=== PATIENT | female | born 1940 | race Caucasian/White ===

== ENCOUNTER 2016-08-20 05:05 | Inpatient (IN) ==
[2016-08-20] MEDS ORDERED: ASPIRIN PO STA (05:12)
--- NOTE | 2016-08-20 05:26 | EKG Report ---
Test Performed on : 08/20/2016 05:16:31 AM Test Reason : Chest Pain Blood Pressure : / mmHG Vent. Rate : 104 BPM Atrial Rate : 104 BPM P-R Int : 150 ms QRS Dur : 084 ms QT Int : 326 ms P-R-T Axes : 063 027 028 degrees QTc Int : 428 ms Sinus tachycardia. Possible Left atrial enlargement Cannot rule out Anterior infarct , age undetermined Abnormal ECG When compared with ECG of 11-AUG-2010 17:36, Nonspecific T wave abnormality now evident in Inferior leads Unconfirmed Result
[2016-08-20] MEDS ORDERED: DUONEB (A & A) INH ONE ×2 (05:29→08:25)
[2016-08-20 05:34] LABS: MANUAL DIFF NEEDED? NO
[2016-08-20 05:37] LABS: BASO% 0.3 % (0.0-0.8); EOS# 1.37 X1000 (0.0-0.7); EOS% 10.2 % (0.0-10.0); HEMATOCRIT 35.4 % (37.0-47.0); HEMOGLOBIN 11.8 g/dL (12.0-16.0); IMM GRAN# 0.04 X1000 (0.0-0.04); IMM GRAN% 0.3 % (0.0-0.5); LYMPH# 1.16 X1000 (1.2-3.4); LYMPH% 8.6 % (20.5-51.1); MCH 32.6 PG (27-31); MCHC 33.3 g/dL (33-37); MCV 97.8 FL (81-99); MONO# 0.91 X1000 (0.11-0.59); MONO% 6.8 % (1.7-9.3); MPV 9.1 FL (7.4-10.4); NEUT% 73.8 % (42.2-75.2); PLT 285 X1000 (130-400); RBC 3.62 XMIL (4.2-5.4)
[2016-08-20 05:48] LABS: INR 1.06; PROTIME 11.2 Seconds (9.2-11.7); PTT 29.6 Seconds (22.0-36.0)
[2016-08-20 05:55] LABS: ALBUMIN 3.2 g/dL (3.5-5.0); MAGNESIUM 1.5 mg/dL (1.5-2.7); POTASSIUM 4.3 mmol/L (3.5-5.1); TOTAL BILIRUBIN 0.46 mg/dL (0.20-1.00); TOTAL PROTEIN 7.6 g/dL (6.3-8.3)
[2016-08-20] MEDS ORDERED: LASIX IV ONE (06:18)
[2016-08-20] MEDS ORDERED: SOLU-MEDROL IV ONE (06:20)
[2016-08-20 06:33] LABS: URINE CULTURE NEEDED? NO; URINE MICRO REVIEW NEEDED? NO; URINE SOURCE CLEAN CATCH
[2016-08-20 06:46] LABS: BILIRUBIN URINE NEGATIVE (NEGATIVE); BLOOD URINE NEGATIVE (NEGATIVE); COLOR YELLOW; GLUCOSE URINE 70 mg/dL (NEGATIVE); LEUKOCYTES URINE NEGATIVE (NEGATIVE); NITRITE URINE NEGATIVE (NEGATIVE); PROTEIN URINE 30 mg/dL (NEGATIVE); SP GRAVITY URINE 1.015; TURBIDITY URINE CLEAR (CLEAR); UROBILINOGEN URINE NORMAL (NORMAL)
[2016-08-20 06:47] LABS: UR EPITHELIAL CELLS <10 /HPF (<10); URINE BACTERIA NEGATIVE /HPF; URINE RBC <10 /HPF (<10); URINE WBC <10 /HPF (<10)
--- NOTE | 2016-08-20 07:40 | Diag Imaging Result Doc PS360 ---
EXAM: CHEST-1 VIEW HISTORY: CP COMMENT: The inspiration is much less optimal than on 07/08/2010. There is ill-defined opacity in the lung bases particularly on the left. Some of this may be due to atelectasis. The possibility of mild bronchopneumonia in the left lower lobe and lingula cannot be excluded. The heart size is somewhat larger in appearance but this is probably a function of the degree of inspiration. There are calcified nodes in both long. IMPRESSION: Poor inspiration. Questionable atelectasis versus pneumonia particularly left lower lobe. Electronically signed by Steve Ott 08/20/2016 7:38 AM
[2016-08-20] MEDS ORDERED: TYLENOL WITH CODEINE #3 PO ONE (08:25)
--- NOTE | 2016-08-20 08:34 | PROVIDER DOCUMENTATION ---
HPI-Respiratory General - General Chief Complaint: Shortness of Breath Stated Complaint: SOB, BACK PAIN Time Seen by Provider: 08/20/16 06:04 Source: patient, family Allergies/Adverse Reactions: Patient Allergies Allergy/AdvReac Type Severity Reaction Status Date / Time No Known Allergies Allergy Verified 08/20/16 06:44 Home Medications: Home Medication List Medication Instructions Recorded Confirmed Last Taken Type ATORVAstatin [Lipitor] 10 mg PO DAILY 09/12/15 08/20/16 08/19/16 09:00 History Clonazepam 0.5 mg PO HS 09/12/15 08/20/16 08/19/16 21:00 History Duloxetine HCl [Cymbalta] 60 mg PO DAILY 09/12/15 08/20/16 08/19/16 09:00 History Hydrocodone Bit/Acetaminophen 1 each PO Q8H PRN PRN 09/12/15 08/20/16 09/12/15 History [Hydrocodon-Acetaminophn 10-325] Levothyroxine [Synthroid] 88 microgm PO DAILY 09/12/15 08/20/16 08/19/16 09:00 History Zolpidem Tartrate 10 mg PO HS 09/12/15 08/20/16 08/19/16 21:00 History Acarbose 100 mg PO DAILY 08/20/16 08/20/16 08/19/16 09:00 History Glyburide 2.5 mg PO DAILY 08/20/16 08/20/16 Unknown History Losartan Potassium [Cozaar] 100 mg PO DAILY 08/20/16 08/20/16 08/19/16 09:00 History PRAVAstatin [Pravachol] 40 mg PO DAILY 08/20/16 08/20/16 08/19/16 09:00 History Sitagliptin Phosphate [Januvia] 100 mg PO DAILY 08/20/16 08/20/16 08/19/16 09: 00 History Sulfamethoxazole/Trimethoprim 1 each PO BID 08/20/16 08/20/16 08/19/16 09:00 History [Bactrim Ds Tablet] - History of Present Illness-Resp Nature of Presenting Problem: Reports SOB with nonproductive cough and leg swelling since 2 days ago. Denies CP/SOB/LOC /F/C/N/V. Quality of Pain: reports: none Severity in ED: reports: moderate Onset/Duration: reports: 2 days ago Timing: reports: still present Context: denies: recent foreign travel Exposure: reports: unknown cause Cough Quality/Degree: reports: moderate, dry cough Episode Frequency: no prior episodes Current Respiratory Medication Therapy: Initiated see nurses note Modifying Factors: improves with: nothing Associated Symptoms: reports: cough, short of breath. denies: dizziness, earache, facial pain, fever/chills, headache, nasal congestion Similar Symptoms Previously?: Yes Recently seen or treated by another doctor?: No Review of Systems - Adult - REVIEW OF SYSTEMS - ADULT Constitutional: reports: no symptoms reported Eyes: reports: no symptoms reported Ears, Nose, Mouth & Throat: reports: no symptoms reported Cardiovascular: reports: see HPI, edema. denies: chest pain Respiratory: reports: see HPI, cough, shortness of breath Gastrointestinal: reports: no symptoms reported Genitourinary: reports: no symptoms reported Musculoskeletal: reports: no symptoms reported Integumentary: reports: no symptoms reported Neurological: reports: no symptoms reported Psychiatric: reports: no symptoms reported Endocrine: reports: no symptoms reported Hematologic/Lymphatic: reports: no symptoms reported Allergic/Immunologic: reports: no symptoms reported All Other Systems: Reviewed and Negative Past History - Adult - PAST MEDICAL HISTORY-ADULT Review of Records: reports: Old Records Reviewed, Nursing Assessment Review, Medications Reviewed, Social history reviewed & non-contributory. Physical Exam-General - PHYSICAL EXAM-ADULT Initial Vital Signs Reviewed: Yes - CONSTITUTIONAL General Appearance: appears well, alert, no apparent distress - EYES Eyes: PERRL/EOMI, pink conjunctivae - HEAD, EARS, NOSE, MOUTH & THROAT HENMT: normocephalic/atraumatic, moist mucous membranes, normal ENT inspection - NECK Neck: non-tender, full range of motion, supple - RESPIRATORY Respiratory: chest non-tender, lungs clear, normal breath sounds, no pleuratic chest pain, no respiratory distress, no accessory muscle use, decreased breath sounds, wheezing (B/l) - CARDIOVASCULAR Cardiovascular: normal peripheral pulses, regular rate, rhythm, no edema - GASTROINTESTINAL (ABDOMEN) Abdominal Exam: normal bowel sounds, non tender, soft - MUSCULOSKELETAL Back Exam: normal inspection, no CVA tenderness Extremity: normal range of motion, non-tender, normal gait - SKIN Integumentary: normal color, normal turgor, warm/dry - PSYCHIATRIC Psych/Mental Status: normal mood/affect, normal thought content, normal thought process, oriented x 3 Progress - PLAN OF CARE/RESULTS Progress/Plan/Lab Results: Vital Signs - 8 hr 08/20/16 05:24 08/20/16 05:38 08/20/16 07:02 Temperature 98.1 F Pulse Rate 105 H 105 H 92 H Respiratory Rate 19 19 25 H Blood Pressure 162/73 131/77 O2 Sat by Pulse Oximetry 87 L 93 L 93 L 08/20/16 07:48 Temperature Pulse Rate 97 H Respiratory Rate 20 Blood Pressure 121/71 O2 Sat by Pulse Oximetry 95 Laboratory Results - last 24 hr 08/20/16 08/20/16 08/20/16 05:25 05:25 05:25 WBC 13.44 H RBC 3.62 L Hgb 11.8 L Hct 35.4 L MCV 97.8 MCH 32.6 H MCHC 33.3 RDW Std Deviation 12.0 Plt Count 285 MPV 9.1 Immature Gran % (Auto) 0.3 Neut % (Auto) 73.8 Lymph % (Auto) 8.6 L [place] % (Auto) 6.8 Eos % (Auto) 10.2 H Baso % (Auto) 0.3 Immature Gran # (Auto) 0.04 Neut # (Auto) 9.92 H Lymph # (Auto) 1.16 L [place] # (Auto) 0.91 H Eos # (Auto) 1.37 H Baso # (Auto) 0.04 PT INR PTT (Actin FS) D-Dimer 4.17 H Sodium 137 Potassium 4.3 Chloride 97 L Carbon Dioxide 26 Anion Gap 14 BUN 24 H Creatinine 1.8 H Estimated GFR/1.73 m2 27 BUN/Creatinine Ratio 13 Glucose 234 H Calculated Osmolality 285 Calcium 9.0 Magnesium 1.5 Total Bilirubin 0.46 AST 11 ALT 7 L Alkaline Phosphatase 109 H Creatine Kinase 52 Troponin T Hgr-Z-[address] Pept Total Protein 7.6 Albumin 3.2 L Globulin 4.4 Albumin/Globulin Ratio 0.7 Urine Source Urine Color Urine Turbidity Urine pH Ur Specific [place] Urine Protein Ur Glucose (Stick) Ur Ketones (Stick) Urine Blood Urine Nitrite Urine Bilirubin Urobilinogen Dipstick Urine Leukocytes Urine WBC (Auto) Urine RBC (Auto) U Epithel Cells (Auto) Urine Bacteria (Auto) 08/20/16 08/20/16 08/20/16 05:25 05:25 05:25 WBC RBC Hgb Hct MCV MCH MCHC RDW Std Deviation Plt Count MPV Immature Gran % (Auto) Neut % (Auto) Lymph % (Auto) [place] % (Auto) Eos % (Auto) Baso % (Auto) Immature Gran # (Auto) Neut # (Auto) Lymph # (Auto) [place] # (Auto) Eos # (Auto) Baso # (Auto) PT 11.2 INR 1.06 PTT (Actin FS) 29.6 D-Dimer Sodium Potassium Chloride Carbon Dioxide Anion Gap BUN Creatinine Estimated GFR/1.73 m2 BUN/Creatinine Ratio Glucose Calculated Osmolality Calcium Magnesium Total Bilirubin AST ALT Alkaline Phosphatase Creatine Kinase Troponin T < 0.010 [id number]-Gwyztmtdemh Pept 3513 H Total Protein Albumin Globulin Albumin/Globulin Ratio Urine Source Urine Color Urine Turbidity Urine pH Ur Specific [place] Urine Protein Ur Glucose (Stick) Ur Ketones (Stick) Urine Blood Urine Nitrite Urine Bilirubin Urobilinogen Dipstick Urine Leukocytes Urine WBC (Auto) Urine RBC (Auto) U Epithel Cells (Auto) Urine Bacteria (Auto) 08/20/16 06:15 WBC RBC Hgb Hct MCV MCH MCHC RDW Std Deviation Plt Count MPV Immature Gran % (Auto) Neut % (Auto) Lymph % (Auto) [place] % (Auto) Eos % (Auto) Baso % (Auto) Immature Gran # (Auto) Neut # (Auto) Lymph # (Auto) [place] # (Auto) Eos # (Auto) Baso # (Auto) PT INR PTT (Actin FS) D-Dimer Sodium Potassium Chloride Carbon Dioxide Anion Gap BUN Creatinine Estimated GFR/1.73 m2 BUN/Creatinine Ratio Glucose Calculated Osmolality Calcium Magnesium Total Bilirubin AST ALT Alkaline Phosphatase Creatine Kinase Troponin T Trm-B-Xoobiasdckl Pept Total Protein Albumin Globulin Albumin/Globulin Ratio Urine Source CLEAN CATCH Urine Color YELLOW Urine Turbidity CLEAR Urine pH 6.0 Ur Specific [place] 1.015 Urine Protein 30 A Ur Glucose (Stick) 70 A Ur Ketones (Stick) NEGATIVE Urine Blood NEGATIVE Urine Nitrite NEGATIVE Urine Bilirubin NEGATIVE Urobilinogen Dipstick NORMAL Urine Leukocytes NEGATIVE Urine WBC (Auto) <10 Urine RBC (Auto) <10 U Epithel Cells (Auto) <10 Urine Bacteria (Auto) NEGATIVE Orders Category Date Time Status Cardiac Monitoring DIRECTED Care 08/20/16 05:12 Active Saline Loc NOW Care 08/20/16 05:12 Active CHEST-1 VIEW [RAD] Stat Exams 08/20/16 05:12 Completed LUNG SCAN / VQ [NM] Stat Exams 08/20/16 07:21 Ordered CBC WITH ELECTRONIC DIFF [HEME] Stat Lab 08/20/16 05:25 Completed CK PROFILE [SP CHEM] Stat Lab 08/20/16 05:25 Completed COMPREHENSIVE METABOLIC PANEL [CHEM] Stat Lab 08/20/16 05:25 Completed D-DIMER [CHEM] Stat Lab 08/20/16 05:25 Completed MAGNESIUM [CHEM] Stat Lab 08/20/16 05:25 Completed PRO B-NATRIURETIC PEPTIDE Stat Lab 08/20/16 05:25 Completed PROTIME WITH INR [COAG] Stat Lab 08/20/16 05:25 Completed PTT [COAG] Stat Lab 08/20/16 05:25 Completed TROPONIN T Stat Lab 08/20/16 05:25 Completed UA NIMS W/REFLEX CULT [URINALYSIS] Stat Lab 08/20/16 06:15 Completed Acetaminophen with Codeine [Tylenol with Codeine #3] Med 08/20/16 08:25 Discontinued 1 each PO NOW ONE Albuterol 2.5MG/Ipratrop 0.5MG [Duoneb (A & A)] Med 08/20/16 05:29 Discontinued 3 ml INH NOW ONE Albuterol 2.5MG/Ipratrop 0.5MG [Duoneb (A & A)] Med 08/20/16 08:25 Discontinued 3 ml INH NOW ONE Aspirin Med 08/20/16 05:12 Discontinued 325 mg PO STAT STA Furosemide [Lasix] Med 08/20/16 06:18 Discontinued 40 mg IV NOW ONE Methylprednisolone Sod Succ [Solu-Medrol] Med 08/20/16 06:20 Discontinued 80 mg IV NOW ONE Aerosol Treatments Routine Oth 08/20/16 05:29 Completed Aerosol Treatments Routine Oth 08/20/16 08:25 Active Aerosol Treatments Stat Oth 08/20/16 05:29 Completed Aerosol Treatments Stat Oth 08/20/16 08:25 Active EKG [EKG] Stat Ther 08/20/16 05:12 Draft US [Venous U/S Bilateral Legs] Stat Ther 08/20/16 07:21 Ordered Result Diagrams: 08/20/16 05:25 08/20/16 05:25 - XRAY 1 XRAY Study: Chest Impression: Abnormal XRAY Interpretation: LLL infiltrates per Radiology - CONSULTS/PCP/HOSPITALIST Notification Time Discussed: 08:33 Reason/Comments: Admit to hospitalist Consult Disposition: Admit Departure - Departure Time of Disposition Decision: 08:33 DIAGNOSIS: CHF exacerbation, Pneumonia, Shortness of breath Disposition: ADMITTED INPATIENT 09 Certified Medical Emergency: Emergent Condition: Stable Referrals and Follow-Ups: None,PCP [Primary Care Provider] - - Critical Care Note This patient required my direct & personal management of CC.: No
[2016-08-20] MEDS ORDERED: LEVAQUIN 500 MG/D5W 500 MG/100 ML IVPB IV ONE (08:35)
--- NOTE | 2016-08-20 11:13 | HISTORY AND PHYSICAL ---
PRIMARY CARE PHYSICIAN: Dr. Laura Dunbar. CHIEF COMPLAINT: Cough and shortness of breath. HISTORY OF PRESENT ILLNESS: Mrs. Vu is a 75-year-old female with a history of diastolic heart failure, CKD stage 3-[address] Johnson, hypertension, type 2 diabetes, and others, who presents with 2 weeks of progressively worsening cough and shortness of breath. Her cough is described as dry with occasional clear sputum production. She does report subjective fevers and chills. She also reports occasional episodes of atypical type chest pain and occasional lower extremity edema. Her continued cough brought her to the ER for evaluation. In the ER a chest x-ray was done and it showed poor inspiration but questionable infiltrate in the left lower lung zone. Laboratory data showed elevated white count, fairly significantly elevated D-dimer at 4.17, and a proBNP of 3,513. She does have a creatinine of 1.8 but on review this appears to be chronic. She denies any orthopnea or PND. She denies any exertional chest pain but does have exertional dyspnea. The patient had an echocardiogram done in June of this year which showed normal ejection fraction, mild MR, otherwise nothing acute. A stress test on that same day was negative. She has been given antibiotics and diuretics in the ER and she is now going to be admitted for further treatment evaluation. PAST MEDICAL HISTORY: 1. Diastolic heart failure. 2. Hypertension. 3. Type 2 diabetes. 4. Hyperlipidemia. 5. Hypothyroidism. 6. History of TIAs. 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 8. History of diverticulitis. PAST SURGICAL HISTORY: Hysterectomy, colon resection, cholecystectomy. SOCIAL HISTORY: Patient quit smoking 17 years ago. She lives in [place]. She is and has 2 children. She denies current tobacco, alcohol, or drug use. FAMILY HISTORY: Father from prostate cancer. Mother from CHF. REVIEW OF SYSTEMS: A 14 point review of systems was obtained and found to be negative with the exception of the HPI. ALLERGIES: No known drug allergies. HOME MEDICATIONS: Acarbose 100 mg daily, Lipitor 10 mg daily, Klonopin 0.5 mg at bedtime, Cymbalta 60 mg daily, glyburide 2.5 mg daily, [place] as directed, Synthroid 88 mcg daily, Cozaar 100 mg daily, Pravachol 40 mg daily, Januvia 100 mg daily, Bactrim 1 b.i.d., Zolpidem 10 mg at bedtime. PHYSICAL EXAMINATION: VITAL SIGNS: Blood pressure is 131/81, heart rate is 108, respiratory rate is 27, O2 saturation is 95% on 2 L, temperature is 98.1 degrees. GENERAL: This is an elderly-appearing female, lying in hospital bed. No acute distress. NEUROLOGIC: The patient is awake, alert, oriented. She follows commands without focal deficits. HEENT: Head is atraumatic and normocephalic. Pupils are equal, round, reactive to light. Oral mucosa is moist. Trachea is midline. No JVD or carotid bruits. CHEST: Diminished at the bases with bibasilar crackles. CV: Tachy but regular. S1, S2 is noted. GI: Soft, nondistended, nontender. Bowel sounds are positive. EXTREMITIES: Trace edema. Pulses palpable but diminished bilaterally. DIAGNOSTIC DATA: Chest x-ray shows questionable left lower lobe infiltrate with increased pulmonary vascularity but poor inspiration. EKG shows sinus tach without acute ST or T abnormalities. WBC 13.44, hemoglobin 11.8, hematocrit 35.4, platelet count 285,000. D-dimer 4.17. INR 1.06. Sodium 137, potassium 4.3, chloride 97, CO2 26, anion gap 14, BUN 24, creatinine 1.8, glucose 234, magnesium 1.5, ALT 7, alkaline phosphatase 109. CK 52. Troponin negative. ProBNP 3,513. Albumin 3.2. Lactate 1.5. UA shows 30 protein, 70 glucose, otherwise negative for acute process. ASSESSMENT AND PLAN: 1. Progressive dyspnea: This is likely multifactorial to include diastolic heart failure and community-acquired pneumonia. We will treat her for both with diuretics, antibiotics, and breathing treatments. We are going to check a noncontrasted CT of the chest to better evaluate her lung parenchyma. We will also trend her enzymes. She has had a recent echocardiogram. 2. Diastolic heart failure: As above, we will add IV diuretics, follow strict I's and Os and daily weights. 3. Elevated D-dimer: Ultrasound of the legs has been ordered as has a V/Q scan. 4. Community-acquired pneumonia: Will start azithromycin and Rocephin. Add breathing treatments and aggressive pulmonary toilet. Blood cultures and lactic acid have been obtained. 5. Acute on chronic renal failure: Creatinine is about baseline. We will continue her medications and monitor her renal status daily. 6. Diabetes mellitus: Check hemoglobin A1c. Add pattern sugars, sliding scale insulin. Hold her orals for now. 7. Hypothyroidism: We will check a thyroid function panel and continue her Synthroid. 8. Hypertension: Chronic and stable. Continue home medications. 9. Deep vein thrombosis prophylaxis with heparin. Further recommendations to follow. Dictated by CARYL Anaya for Dudley Logan MD cc: CARYL Anaya MD Lindsay E. Smith, MD
--- NOTE | 2016-08-20 11:24 | Diag Imaging Result Doc PS360 ---
CT THORAX W/O CONTRAST - 08/20/2016 INDICATION: SOB/PNA? COMPARISON: Chest x-ray 07/08/2010 FINDINGS: There are small pleural effusions. There is some smooth intralobular septal thickening bilaterally and some groundglass interstitial opacities suggesting mild interstitial pulmonary edema. There is a small pulmonary nodule at the left upper lobe measuring about 1 cm. No other significant infiltrates. Airways are clear. Heart size is borderline. There is air throughout the biliary collecting system, nonspecific. Bony structures are intact. IMPRESSION: 1. Probable interstitial pulmonary edema. Small pleural effusions. 2. Pneumobilia of uncertain significance. 3. Small left upper lobe pulmonary nodule. Electronically signed by Jonh Almaguer 08/20/2016 11:22 AM
--- NOTE | 2016-08-20 12:10 | Diag Imaging Result Doc PS360 ---
LUNG SCAN / VQ - 08/20/2016 INDICATION: SOB with elevated D-dimer COMPARISON: Chest x-ray 08/20/2016 FINDINGS: 33.5 mCi of DTPA was used for inhalation. 5.5 mCi of MAA was used for injection. There is heterogeneous pattern of the inhaled radiotracer. This is compatible with small airways disease. There are mild, matching perfusion defects most notably in the posterior costophrenic angles best seen on the posterior oblique images involving both lower lobes. IMPRESSION: Indeterminate exam. Small airways disease causing heterogeneous ventilation. Electronically signed by Jonh Almaguer 08/20/2016 12:08 PM
[2016-08-20] MEDS ORDERED: SALINE LOCK IV FLUID XX ONE (13:41)
[2016-08-20] MEDS ORDERED: DUONEB (A & A) INH PRN (13:43)
[2016-08-20] MEDS: ROCEPHIN 1 GM/NS 1 GM/50 ML IVPB IV SCH (15:06)
[2016-08-20] MEDS: DUONEB (A & A) INH SCH ×3 (16:13→23:00)
[2016-08-20] MEDS: HUMALOG SUBQ SCH ×2 (17:14→20:03)
[2016-08-20] MEDS: ZITHROMAX 500 MG/NS 500 MG/250 ML IVPB IV SCH (17:17)
[2016-08-20] MEDS: CARDIZEM PO SCH (19:44)
[2016-08-20] MEDS: LASIX IV SCH (19:44)
--- NOTE | 2016-08-20 21:06 | CONSULTATION ---
DATE OF CONSULTATION: 08/20/2016 CONSULTATION REQUESTED BY: Hospitalist Service. REASON FOR CONSULTATION: Cough, shortness of breath, abnormal chest x-ray, CT scan, suspect heart failure. HISTORY: Ms. Vu is a 75-year-old female who presented to the hospital today because last night at about 3 o'clock in the morning she became very short of breath and she could not lay flat. The patient says that for the past 2 weeks or so, she has been experiencing recurrent cough, mostly nonproductive. She has not had any chest pain. She has not experienced any significant swelling of her legs. The patient states that about 3 months ago or so, Dr. Hill diagnosed some sort of a yeast infection of the throat. She had been experiencing difficulty swallowing. She was given some treatment, however, that has not resolved completely. The patient also about a week ago or 8 days or so, she went to see Dr. Gale who diagnosed some sort of bladder infection and put her on Bactrim. She has been taking it twice a day. The patient upon presentation to the emergency room received a chest x-ray that shows changes consistent with pulmonary congestion, questionable atelectasis versus pneumonia, left lower lobe. They did a CT scan without contrast that indicates interstitial pulmonary edema and left upper lobe pulmonary nodule. They did a ventilation perfusion scan because her D-dimer was elevated and it shows indeterminate exam, small airways disease causing heterogeneous ventilation. The patient has been given diuretics. She has been started on antibiotics, ceftriaxone, and she has been admitted to the hospital for further management. PAST MEDICAL HISTORY: The patient has a past history of diabetes mellitus, type 2, for a long time. She has also developed chronic renal insufficiency, and she monitors her kidney function with Dr. Johnson periodically. She does have a history of hypertension. She has hyperlipidemia. The patient has been a frequent customer of the [facility]. Going back in 2000, she underwent heart catheterization because of a kind of unusual complaint of chest discomfort. Back then, Dr. Erickson reported normal coronary arteries. In 2007, she had another heart catheterization by Dr. Erickson which again revealed normal coronary arteries. She presented to Dr. Mathew just recently in June of this year and they ordered a Lexiscan stress test and an echocardiogram. Both studies showed normal heart function. At that time, the patient was not having any complaints or issues of any significance. Her ejection fraction was 60%. There was no aortic valve disease nor significant mitral regurgitation. The patient has COPD. She had been a former smoker in the past. PAST SURGICAL HISTORY: She has had hysterectomy, cholecystectomy, cataract extraction. SOCIAL HISTORY: She is . She has 2 grownup children. She is retired. She quit smoking about 17 or 18 years ago. FAMILY HISTORY: There is no significant history of coronary heart disease or cardiovascular illness. REVIEW OF SYSTEMS: For the past few months, she has been having the aforementioned dry cough. No chest pains. No edema. She has lost about 6 pounds. She has been having difficulty swallowing. She has seen Dr. Hill for that. She is due to see him again. She has no abdominal issues at this time. No musculoskeletal complaints of any significance. Her chronic kidney disease was stable last time she saw Dr. Johnson, which was about 3 or 4 months ago. Her diabetes has been an issue as far as keeping it under control. No other issues on multiple systems reviewed. HOME MEDICATIONS: 1. Zolpidem 10 mg at bedtime. 2. Bactrim twice a day for the past 8 days. 3. Januvia 100 mg daily. 4. Pravastatin 40 mg daily. 5. Losartan 100 daily. 6. Levothyroxine 88 mcg daily. 7. Hydrocodone every 8 hours. 8. Cymbalta 60 mg daily. 9. Glyburide 2.5 mg daily. 10.Klonopin 0.5 mg at bedtime. 11.Acarbose 100 daily. 12.Atorvastatin 10 mg daily. ALLERGIES: She reports no allergies. PHYSICAL EXAMINATION: Vital signs: Today blood pressure is 129/67, temperature 97.9, pulse 81, respirations 16. General: She is awake, elderly, in no distress. HEENT: No jugular venous distention. No cervical bruits. Chest: Shows diffusely diminished breath sounds with some rhonchi, prolonged expiratory phase. Cardiac: Heart sounds are regular and rhythmic. I do not hear any gallop or murmur. Abdomen: Obese, nontender. There is no hepatomegaly. There are no bruits. Extremities: Show fairly good pulses. There is no edema. Neurologic: She follows commands, moves all four extremities. LABORATORY DATA: Her blood work includes a white count of 13,440, hemoglobin 11.8. D-dimer was 4.17. Her sugar was 419. BUN 24, creatinine 1.8. Troponin was negative. Her 12-lead EKG was normal with no acute ST-T abnormalities or LDH or anything. IMPRESSION: 1. Patient presenting with increasing dyspnea and cough over the course of the past few days. Radiographic and laboratory evidence were suggestive of congestive heart failure. In this case, given her normal EKG, her unremarkable cardiovascular exam, this would be diastolic dysfunction. She had an echocardiogram done 2 months ago that showed a normal EF at 60%. My suspicion is that this patient may have developed some deterioration of her renal function because of Bactrim. That may have tipped her over into a state of relative hypervolemia. At this point in time, that medication has been put on hold. 2. Diabetes mellitus that appears to be suboptimally controlled. 3. History of hypertension. 4. History of evaluation for chest pains in the past with 2 negative heart catheterizations in 2000, 2007, and recent negative stress test in June of 2016 that was normal. 5. History of hypothyroidism. 6. Chronic kidney disease. RECOMMENDATIONS: At this point in time, I agree with your general approach to her case. That would give her gentle diuresis. I would stop Bactrim. I would evaluate her for possible respiratory infection although the CT scan does not reveal pneumonia. I would consider discussing with Dr. Johnson about the possibility of interstitial nephritis related to Bactrim. I would also consider calling Dr. Hill on the case since she has issues with difficulty swallowing, chronic cough. She may be having microaspiration. In addition, the patient has clinical and radiographic evidence of COPD and, because of that and her lack of obvious heart disease, I would suggest to discontinue beta-blockers and probably put her on diltiazem to control her heart rate and her blood pressure. Further advice will be forthcoming. Thank you for the opportunity to participate in her evaluation. cc: Lobito Gonzalez MD
[2016-08-20] MEDS: AMBIEN PO SCH (21:38)
[2016-08-20] MEDS: KLONOPIN PO SCH (21:38)
[2016-08-21] MEDS: CARDIZEM PO SCH ×5 (00:32→23:50)
[2016-08-21] MEDS: DUONEB (A & A) INH SCH ×6 (03:50→22:59)
[2016-08-21 05:46] LABS: MANUAL DIFF NEEDED? NO
[2016-08-21 05:52] LABS: BASO% 0.1 % (0.0-0.8); EOS# 0.07 X1000 (0.0-0.7); EOS% 0.6 % (0.0-10.0); HEMATOCRIT 31.4 % (37.0-47.0); HEMOGLOBIN 10.6 g/dL (12.0-16.0); IMM GRAN# 0.03 X1000 (0.0-0.04); IMM GRAN% 0.2 % (0.0-0.5); LYMPH# 1.53 X1000 (1.2-3.4); LYMPH% 12.6 % (20.5-51.1); MCH 32.2 PG (27-31); MCHC 33.8 g/dL (33-37); MCV 95.4 FL (81-99); MONO# 0.87 X1000 (0.11-0.59); MONO% 7.2 % (1.7-9.3); MPV 8.8 FL (7.4-10.4); NEUT% 79.3 % (42.2-75.2); PLT 297 X1000 (130-400); RBC 3.29 XMIL (4.2-5.4)
[2016-08-21 06:19] LABS: CALCIUM 9.1 mg/dL (8.8-10.2); POTASSIUM 4.4 mmol/L (3.5-5.1)
[2016-08-21] MEDS: LASIX IV SCH (06:41)
[2016-08-21] MEDS: HUMALOG SUBQ SCH ×4 (06:41→20:48)
[2016-08-21] MEDS: SYNTHROID PO SCH (06:41)
[2016-08-21] MEDS: CYMBALTA PO SCH (09:30)
[2016-08-21] MEDS: COZAAR PO SCH (09:30)
[2016-08-21] MEDS: LIPITOR PO SCH (09:30)
[2016-08-21 11:20] LABS: UR CREAT RANDOM 22.6 mg/dL (11-20); UR PROT RANDOM 5.1 mg/dL
--- NOTE | 2016-08-21 12:48 | Diag Imaging Result Doc PS360 ---
EXAM: BA SWALLOW W/VIDEO SPEECH THER HISTORY: R/O aspiration TECHNIQUE: Lateral projection only, multiple swallows of liquid and semisolid barium. COMMENT: No evidence of aspiration is present. 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 There is minimal presbyesophagus in the distal thoracic esophagus. There is no difficulty in swallowing either consistency of barium. IMPRESSION: No evidence of aspiration. Cricopharyngeal achalasia. Electronically signed by Steve Ott 08/21/2016 12:45 PM
[2016-08-21] MEDS: ROCEPHIN 1 GM/NS 1 GM/50 ML IVPB IV SCH (13:47)
--- NOTE | 2016-08-21 14:13 | Diag Imaging Result Doc PS360 ---
EXAM: US RENAL 2 (RETROPER) COMPLETE HISTORY: decreased renal function TECHNIQUE: COMMENT: Both kidneys are hyperechoic in appearance and somewhat atrophic the right measuring 8.3 x 3.8 x 4.5 cm the left measuring 9 x 4.3 x 4.6 cm. There is no evidence of hydronephrosis mass or stones. Compared to the previous study of 07/18/2013 the kidneys appear more hyperechoic but otherwise has been no significant change. The urinary bladder is not particularly distended. IMPRESSION: Medical renal disease. Electronically signed by Steve Ott 08/21/2016 2:11 PM
--- NOTE | 2016-08-21 14:24 | CONSULTATION ---
DATE OF CONSULTATION: 08/21/2016 REASON FOR CONSULTATION: Acute kidney injury. HISTORY OF PRESENT ILLNESS: Ms. Vu is a 75-year-old white female with known chronic kidney disease who we follow in the office. She also has diabetes, hypertension, diastolic heart failure. She presented to the hospital with 2 weeks of worsening cough and dyspnea. Minimal sputum production. No chills or fevers. Some atypical chest pain. Minimal lower extremity swelling. No nausea or vomiting. No orthopnea or PND. No change in bowel or bladder function. PAST MEDICAL HISTORY: As above. HOME MEDICATIONS: 1. Acarbose 2. Lipitor. 3. Klonopin. 4. Cymbalta. 5. Glyburide. 6. [place]. 7. Synthroid. 8. Pravachol. 9. Januvia. 10. Bactrim. 11. Zolpidem. ALLERGIES: None. SOCIAL: Former smoker. . Has adult children. FAMILY HISTORY: Noncontributory. REVIEW OF SYSTEMS: Otherwise noncontributory. PHYSICAL EXAMINATION: Vital Signs: Blood pressure 134/55, heart rate 81, respirations 20, afebrile. Intake 600 mL. Output not recorded. General: No acute distress. Skin: Warm and dry. Conjunctivae are pink. Pupils are equal. Oropharynx is clear. Neck: Supple. Trachea is midline. No jugular venous distention. Heart: Regular without gallops or murmurs. Lungs: Have equal breath sounds. No crackles or wheezes. Abdomen: Soft, nontender. Bowel sounds present. Extremities: No clubbing, cyanosis or edema. LABORATORY DATA: Reviewed. IMPRESSION: Chronic kidney disease stage 3. Her creatinine was at baseline on admission. Slightly elevated today. We will check urine electrolytes, UA and renal ultrasound etc. Overall, she looks euvolemic and she has no evidence of interstitial nephritis. I agree with stopping her Bactrim however. We will observe. cc: Sb Johnson MD
[2016-08-21] MEDS: ZITHROMAX 500 MG/NS 500 MG/250 ML IVPB IV SCH (15:20)
--- NOTE | 2016-08-21 15:31 | PROGRESS NOTE ---
DATE: 08/21/2016 SUBJECTIVE: This patient states that she is feeling better, but she feels depressed. I had a conversation with the patient, and she does not know why she has depression. She states that at home everything is okay and her family is fine. OBJECTIVE: Vital Signs: Temperature 98.1 degrees, pulse 86, respiratory rate 19, blood pressure 119/50. Oxygen saturation 97% on 2 L of nasal cannula. HEENT: Head normocephalic. No trauma. PERRLA. Neck supple. No JVD. No masses. Central trachea. Chest clear to auscultation. No wheezing. No rales. Abdomen soft, nontender, nondistended. No hepatosplenomegaly. Extremities: No edema. No clubbing. No cyanosis. LABORATORY: WBC 12.1, hemoglobin 10.6, hematocrit 31.4, platelets 297,000. Sodium 137, potassium 4.4, chloride 94, bicarbonate 27. BUN 36, creatinine 2.3, glucose 152. Calcium 9.1. ASSESSMENT AND PLAN: 1. Shortness of breath. This is likely related to underlying diastolic heart failure. CT scan showed interstitial edema. I will continue with gentle diuresis. I will decrease the dose of furosemide from 40 IV b.i.d. to 40 IV daily. 2. Diastolic heart failure, as above. 3. Elevated D-dimer. Ventilation/Perfusion scan did not show any evidence off pulmonary embolus. 4. Doxfj-kx-mntcagi kidney failure. The creatinine on admission was a baseline and, today, it is a little bit elevated. I decreased already the dose of Lasix from 40 IV twice a day to 40 daily, and I will continue to monitor. Nephrology Department is following this patient. 5. Diabetes mellitus. Continue with the same management. 6. Hypothyroidism. Continue with Synthroid. 7. Hypertension, stable. 8. Deep venous thrombosis prophylaxis with heparin. 9. Depression. I will start this patient on Celexa. I had a conversation with her, and she does not know why she feels so depressed. cc: Dudley Logan MD
[2016-08-21] MEDS: AMBIEN PO SCH ×2 (20:47→20:49)
[2016-08-21] MEDS: KLONOPIN PO SCH (20:48)
[2016-08-21] MEDS: NORCO-10 PO PRN (23:48)
[2016-08-22] MEDS: DUONEB (A & A) INH SCH ×6 (03:45→22:54)
[2016-08-22] MEDS: CARDIZEM PO SCH ×3 (06:20→18:09)
[2016-08-22] MEDS: SYNTHROID PO SCH (06:20)
[2016-08-22] MEDS: HUMALOG SUBQ SCH ×4 (06:28→21:25)
[2016-08-22 06:58] LABS: HEMATOCRIT 30.6 % (37.0-47.0); HEMOGLOBIN 10.1 g/dL (12.0-16.0); MCH 32.4 PG (27-31); MCV 98.1 FL (81-99); MPV 8.9 FL (7.4-10.4); RBC 3.12 XMIL (4.2-5.4)
[2016-08-22 07:17] LABS: ALBUMIN 2.9 g/dL (3.5-5.0); CALCIUM 8.6 mg/dL (8.8-10.2)
[2016-08-22] MEDS: CYMBALTA PO SCH (08:50)
[2016-08-22] MEDS: COZAAR PO SCH (08:50)
[2016-08-22] MEDS: LIPITOR PO SCH (08:50)
[2016-08-22] MEDS ORDERED: LASIX IV SCH (09:00)
[2016-08-22] MEDS ORDERED: CELEXA PO SCH (09:00)
[2016-08-22] MEDS ORDERED: INSULIN PEN NEEDLES ONE (09:13)
[2016-08-22] MEDS: LANTUS SUBQ SCH (09:50)
--- NOTE | 2016-08-22 11:34 | Diag Imaging Result Doc PS360 ---
EXAM: CHEST-PORTABLE HISTORY: F/O pleural effusion TECHNIQUE: AP portable at 1125 COMMENT: The inspiration is suboptimal. The appearance of the chest has not changed appreciably since 08/20/2016. IMPRESSION: Stable Electronically signed by Steve Ott 08/22/2016 11:31 AM
[2016-08-22] MEDS: ROCEPHIN 1 GM/NS 1 GM/50 ML IVPB IV SCH (13:26)
[2016-08-22] MEDS: ZITHROMAX 500 MG/NS 500 MG/250 ML IVPB IV SCH (15:08)
--- NOTE | 2016-08-22 15:14 | PROGRESS NOTE ---
DATE: 08/22/2016 SUBJECTIVE: This patient states that she is feeling better. She is not complaining of chest pain or shortness of breath at this moment, just generalized weakness. I switched the dose of Lasix from 40 IV daily to 40 p.o. daily. Her BUN and creatinine increased a little bit compared with yesterday. She received more than 20 units of sliding scale insulin. I will add Lantus 10 subcutaneously to her medications. OBJECTIVE: Vital Signs: Temperature 97.4 degrees, pulse 89, respiratory rate 18, blood pressure 121/58, oxygen saturation 98% on 2L nasal cannula. HEENT: Head normocephalic. No trauma. PERRLA. Neck: Supple. No JVD. No masses. Central trachea. Chest: Clear to auscultation. Mild rales at the bases. Abdomen: Soft, nontender, nondistended. No hepatosplenomegaly. Extremity: No edema. No clubbing. No cyanosis. Neurological: The patient is alert and oriented x3. No focal deficits. LABORATORY: WBC 9.2, hemoglobin 10.1, hematocrit 30.6, platelets 318,000. Sodium 135, potassium 4, chloride 94, bicarbonate 28, BUN 46, creatinine 2.5, glucose 184, calcium 8.6, albumin 2.9. ASSESSMENT AND PLAN: 1. Shortness of breath. This is likely related to underlying diastolic heart failure. CT scan of the chest showed interstitial edema. I switched the furosemide from 40 IV daily to 40 p.o. daily. 2. Diastolic heart failure, as above. 3. Elevated D-dimer. V/Q scan did not show any pulmonary embolism. Will monitor. 4. Acute on chronic kidney failure. Creatinine has been increasing slowly. I switched the dose of Lasix from IV to p.o., and the Nephrology Department is following this patient. 5. Diabetes mellitus. She has been getting sliding scale insulin. She received more than 20 units yesterday. I will put this patient on Lantus 10 daily and I will monitor the blood sugar. 6. Hypertension, stable. 7. Deep vein thrombosis prophylaxis with heparin. 8. Depression. Continue with Cymbalta. cc: Dudley Logan MD
--- NOTE | 2016-08-22 17:19 | PROGRESS NOTE ---
DATE: 08/22/2016 SUBJECTIVE: She states she does not feel well today. She has not been up much. She did walk with therapy without difficulty. OBJECTIVE: Vital Signs: Blood pressure 121/46, heart rate 88, respirations 20, afebrile. Intake 360 mL. Output 900 mL. General: She is in no distress. Skin: Warm and dry. Eyes: Conjunctivae are pink. Pupils are equal. Neck: Neck veins are not visible. Heart: Regular. Lungs: Have equal breath sounds. No crackles. Abdomen: Soft and nontender. Bowel sounds are present. Extremities: Have no edema, clubbing, or cyanosis. LABORATORY DATA: Sodium 135, potassium 4.0, chloride 94, bicarbonate 28, BUN 46, creatinine 2.5. Chest x-ray performed today is "suboptimal" but no significant changes noted. Her CT of the chest performed on the has "probable interstitial pulmonary edema." Her diuretics may be making her BUN and creatinine worse. On presentation she was really at her baseline. We will observe for another day but if her labs continued to rise then will have to put her diuretics on hold. cc: Sb Johnson MD
[2016-08-22] MEDS: KLONOPIN PO SCH (21:25)
[2016-08-22] MEDS: AMBIEN PO SCH (21:26)
[2016-08-22] MEDS: NORCO-10 PO PRN (21:28)
[2016-08-23] MEDS: CARDIZEM PO SCH ×4 (00:42→18:15)
[2016-08-23] MEDS: DUONEB (A & A) INH SCH ×6 (03:34→22:27)
[2016-08-23] MEDS: SYNTHROID PO SCH (06:05)
[2016-08-23] MEDS: HUMALOG SUBQ SCH ×4 (06:08→21:06)
[2016-08-23 06:55] LABS: MANUAL DIFF NEEDED? NO
[2016-08-23 07:05] LABS: EOS# 0.95 X1000 (0.0-0.7); EOS% 9.8 % (0.0-10.0); HEMATOCRIT 36.7 % (37.0-47.0); HEMOGLOBIN 10.9 g/dL (12.0-16.0); IMM GRAN# 0.07 X1000 (0.0-0.04); IMM GRAN% 0.7 % (0.0-0.5); LYMPH# 2.33 X1000 (1.2-3.4); MCH 29.2 PG (27-31); MCHC 29.7 g/dL (33-37); MCV 98.4 FL (81-99); MONO# 0.87 X1000 (0.11-0.59); MPV 9.8 FL (7.4-10.4); NEUT% 55.5 % (42.2-75.2); PLT 327 X1000 (130-400); RBC 3.73 XMIL (4.2-5.4)
[2016-08-23 07:56] LABS: ALBUMIN 3.3 g/dL (3.5-5.0); CALCIUM 8.9 mg/dL (8.8-10.2)
[2016-08-23 08:18] LABS: POTASSIUM 4.9 mmol/L (3.5-5.1)
[2016-08-23] MEDS ORDERED: LASIX PO SCH (09:00)
[2016-08-23] MEDS: COZAAR PO SCH (09:18)
[2016-08-23] MEDS: LANTUS SUBQ SCH (09:19)
[2016-08-23] MEDS: CYMBALTA PO SCH (09:19)
[2016-08-23] MEDS: LIPITOR PO SCH (09:20)
[2016-08-23] MEDS: ROCEPHIN 1 GM/NS 1 GM/50 ML IVPB IV SCH (13:47)
[2016-08-23] MEDS: ZITHROMAX 500 MG/NS 500 MG/250 ML IVPB IV SCH (15:15)
--- NOTE | 2016-08-23 17:16 | PROGRESS NOTE ---
DATE: 08/23/2016 SUBJECTIVE: This patient states that she is feeling better. She is not complaining of chest pain. No shortness of breath at this moment. She is complaining of generalized weakness. When this patient came in the creatinine and BUN were at her baseline. We used diuretics because of fluid at the level of the lungs and the possibility of CHF exacerbation. Based the CT scan and her pro-BNP that was around 3513. Her kidney function has been getting worse with the use of diuretics, even though I decreased the dose and I change it to p.o. Today I decided to stop it and use a low dose of furosemide every other day, 20 mg p.o. every other day. Talking to the patient she told me that she has been drinking a lot of fluids and juices, her was at the bedside. I told her that if it is okay that she needs to be hydrated but she needs to avoid the excess of fluid. Like I said before, I decreased the dose of Lasix and the frequency and let us see how she does. Hopefully I want to be able to discharge this patient either today in the afternoon or tomorrow morning. Nephrology Department is following this patient as well. I will wait for their recommendations. OBJECTIVE: Vital signs: Temperature 97.6 degrees, pulse 83, respiratory rate 20, blood pressure 129/52, O2 saturation 100% on 2 L of nasal cannula. HEENT: Head normocephalic. No trauma. PERRLA. Neck: Supple. No JVD. No masses. Central trachea. Chest: Clear to auscultation. No wheezing. Mild rales at the level of the left lower lung. Abdomen: Soft, nontender, nondistended. No hepatosplenomegaly. Cardiovascular: RRR. Extremities: No edema. No clubbing. No cyanosis. Neurological: The patient is alert, oriented x3. No deficits. LABORATORY: WBC 9.7, hemoglobin 10.9, hematocrit 36.7, platelets 327,000. Sodium 141, potassium 4.9, chloride 98, bicarbonate 24, BUN 48, creatinine 2.3, glucose 167, calcium 8.3, magnesium 1.8. ASSESSMENT AND PLAN: 1. Shortness of breath likely secondary to underlying diastolic heart failure. ProBNP was elevated and CT of the chest showed interstitial edema, I will change the dose of furosemide from 40 p.o. daily to 20 p.o. every other day, I also talked to the patient about the amount of fluid that she is drinking. It is okayed to be hydrated but we need to avoid fluid overload. 2. Diastolic heart failure. As above. 3. Elevated D-dimer. V/Q scan did not show any pulmonary embolism and she is not complaining of any lower extremity pain or edema. 4. Acute on chronic kidney failure. The creatinine is stable compared with yesterday. I will wait for nephrology recommendations. 5. Diabetes mellitus. Continue to monitor. 6. Hypertension stable. 7. Deep vein thrombosis prophylaxis with heparin. 8. Depression on Cymbalta. cc: Dudley Logan MD
[2016-08-23] MEDS: KLONOPIN PO SCH (21:06)
[2016-08-23] MEDS: AMBIEN PO SCH (21:07)
[2016-08-23] MEDS: NORCO-10 PO PRN (22:26)
[2016-08-23] MEDS ORDERED: D50W SYRINGE IV ONE (23:23)
[2016-08-23] MEDS ORDERED: D50W SYRINGE ONE (23:28)
[2016-08-24] MEDS: CARDIZEM PO SCH ×3 (00:57→13:20)
[2016-08-24] MEDS: DUONEB (A & A) INH SCH ×3 (03:25→11:04)
[2016-08-24 05:39] LABS: MANUAL DIFF NEEDED? NO
[2016-08-24 05:46] LABS: BASO% 0.4 % (0.0-0.8); EOS# 0.81 X1000 (0.0-0.7); EOS% 7.7 % (0.0-10.0); HEMATOCRIT 36.2 % (37.0-47.0); HEMOGLOBIN 12.1 g/dL (12.0-16.0); IMM GRAN# 0.07 X1000 (0.0-0.04); IMM GRAN% 0.7 % (0.0-0.5); LYMPH# 1.81 X1000 (1.2-3.4); LYMPH% 17.2 % (20.5-51.1); MCH 32.8 PG (27-31); MCHC 33.4 g/dL (33-37); MCV 98.1 FL (81-99); MONO# 0.63 X1000 (0.11-0.59); MPV 10.1 FL (7.4-10.4); PLT 290 X1000 (130-400); RBC 3.69 XMIL (4.2-5.4)
[2016-08-24] MEDS: SYNTHROID PO SCH (06:24)
[2016-08-24 06:45] LABS: ALBUMIN 3.1 g/dL (3.5-5.0); POTASSIUM 5.6 mmol/L (3.5-5.1)
[2016-08-24] MEDS ORDERED: HUMALOG SUBQ SCH (07:00)
[2016-08-24] MEDS ORDERED: LANTUS SUBQ SCH (07:32)
[2016-08-24] MEDS: HUMALOG SUBQ SCH ×2 (07:45→12:41)
[2016-08-24 07:52] LABS: HEMOGLOBIN A1C 7.6 % (4.8-6.0)
[2016-08-24 07:57] VITALS: BP 147/56
[2016-08-24] MEDS: COZAAR PO SCH (09:36)
[2016-08-24] MEDS: LIPITOR PO SCH (09:37)
[2016-08-24] MEDS: CYMBALTA PO SCH (09:37)
--- NOTE | 2016-08-24 10:36 | Diag Imaging Result Doc PS360 ---
EXAM: CHEST-2 VIEWS HISTORY: PNA, SOB, ?pulm edema TECHNIQUE: Two views COMPARISON: 08/22/2016. FINDINGS: The lungs are well expanded. The heart is not enlarged. The vessels are not distended. There are no infiltrates. No pleural effusions. Mild scoliosis. IMPRESSION: No acute abnormality. Electronically signed by Lico Steve 08/24/2016 10:33 AM
--- NOTE | 2016-08-24 19:09 | PROGRESS NOTE ---
DATE: 08/24/2016 TIME SEEN: 09:00. SUBJECTIVE: Patient is sitting up in bed. She has no complaints. She denies shortness of breath. OBJECTIVE: Vital Signs: Temperature 97.8 degrees, pulse 73, respiratory rate 17, blood pressure 147/56. Intake 1 L. Output not measured. She is voiding without difficulty. PHYSICAL EXAMINATION: General: This is an elderly female, sitting up in bed. She is awake, alert, oriented x4. HEENT: Normocephalic, atraumatic. Oral mucosa moist. Neck: Supple. Trachea midline. There is no JVD. Cardiovascular: Regular rate and rhythm. There is no murmur or gallop appreciated. Pulmonary: She has equal excursion. She is clear bilaterally. There is no increased work of breathing on room air. Abdomen: Soft, with positive bowel sounds. : Not inspected. She is voiding. Extremities: She has no clubbing, cyanosis or edema. She is moving all extremities. She has been ambulatory in the room to the bathroom without assistance. Integumentary: Skin is warm and dry. LABORATORY DATA: WBC of 10.5, hemoglobin 12.1. Sodium 135, potassium 5.6, chloride 95, CO2 23, BUN 44, creatinine 2.3. ASSESSMENT AND PLAN: 1. Acute kidney injury on chronic kidney disease. Her creatinine has stabilized over the last couple of days. Her urine output appears adequate. We will recheck a chest x-ray this morning. If it is clear, we would try to back off of her diuretics. We can follow with this patient as an outpatient in 2-3 weeks to verify that her renal function has indeed returned to her baseline. 2. Electrolytes, acid-base balance, anemia. These are all stable. 3. Fluid volume. She is not overloaded. 4. Pneumonia she is on appropriately dosed antibiotics. Seen, data reviewed, discussed with Marixa Collins on 08/25/16. I agree with the above assessment and plan of care. rg Dictated by CARYL Joseph for Sb Johnson MD cc: Sb Johnson MD [facility]
--- NOTE | 2016-08-25 08:16 | DISCHARGE SUMMARY ---
ADMISSION DATE: 08/20/2016 DISCHARGE DATE: 08/24/2016 PERTINENT PROCEDURES: 1. V/Q scan was indeterminate. Small airway disease, causing heterogeneous ventilation. 2. Chest CT showed probable interstitial pulmonary edema, small pleural effusion, pneumobilia of uncertain significance, small left upper lobe pulmonary nodule. 3. Modified barium swallow showed no evidence of aspiration, cricopharyngeal achalasia, 4. Renal ultrasound showed medical renal disease. 5. Final chest x-ray showed no acute abnormality. DISCHARGE DIAGNOSES: 1. Dyspnea, secondary to underlying diastolic heart failure. Lasix dose has been adjusted secondary to chronic kidney disease, stage 3, improved. 2. Diastolic heart failure, improved. 3. [id number] kidney failure, with a history of chronic kidney disease, stage 3. Patient's Lasix has been adjusted. 4. Diabetes mellitus, stable. 5. Hypertension, stable. 6. Depression. Continue on Cymbalta. 7. Elevated D-dimer, with a negative V/Q scan. HOSPITAL COURSE: Ms. Vu is a 75-year-old female with a history of diastolic heart failure, chronic kidney disease stage 3, followed by Dr. Johnson, hypertension, diabetes mellitus type 2, hyperlipidemia, hypothyroidism, history of TIA, history of diverticulitis. Patient reported 2 weeks of progressively worsening cough and shortness of breath. Her cough is dry, with occasional clear sputum production. She did report subjective fever and chills and occasional episodes of atypical chest pain and occasional lower extremity edema. In the ED, a chest x-ray was done that showed poor inspiration, but questionable infiltrate in the left lower lung zone. Laboratory data showed an elevated white count. Elevated D-dimer at 4.17, and a proBNP of 3500. She did have a creatinine of 1.8, that is chronic. In the ED, she was started on antibiotics, as well as a diuretic. She underwent a V/Q scan that did not show anything acute. Cardiology was consulted in reference to her heart failure. Most recent EF done 2 months ago showed an EF of 60%. The patient was continued to be gently diuresed. Her Bactrim was stopped, secondary to her acute kidney injury. Renal ultrasound showed medical renal disease. The patient was gently hydrated. She did well on that. The dosage of her Lasix was changed from 40 p.o. daily to 20 p.o. every other day, as well as educated about fluid restrictions. Again, it is okay to hydrate her, but she needs to avoid fluid volume overload. Her shortness of breath improved. The patient is appropriate for discharge today. VITAL SIGNS: Temperature is 97.8 degrees, heart rate 73, respirations 17, blood pressure 147/56, O2 is 98% on room air. DISCHARGE DIET: Diabetic. DISCHARGE MEDICATIONS: As per Dr. Winters: 1. Acarbose 100 mg p.o. daily. 2. Lipitor 10 mg p.o. daily. 3. Clozapine 0.5 mg p.o. at bedtime. 4. Cardizem 30 mg p.o. q.6 hours. 5. Cymbalta 60 mg p.o. daily. 6. Lasix 20 mg p.o. q.48 hours. 7. Glyburide 2.5 mg p.o. daily. 8. [place] 10/325 one each p.o. q.8 hours p.r.n. 9. Synthroid 88 mcg p.o. daily. 10. Cozaar 100 mg p.o. daily. 11. Pravachol 40 mg p.o. daily. 12. Januvia 100 mg p.o. daily. 13. Ambien 10 mg p.o. at bedtime. FOLLOWUP: The patient is being discharged home with self-care. She can return to the ED for any worsening of symptoms DISCHARGE TIME: 30 minutes. Dictated by CARYL Nair for Dudley Logan MD cc: Dudley Logan MD
[2016-08-25] MEDS ORDERED: LASIX PO SCH (09:00)
== END 2016-08-24 14:24 | disposition home health service (06) ==
LOC: ED 05:05 → 3N 09:50
PROVIDERS: ATTEND Internal Medicine